=== PATIENT | male | born 1985 | race Two or more races ===

== ENCOUNTER 2022-01-03 00:25 | Emergency (ER) | payer OTHER ==
[2022-01-03] MEDS ORDERED: LIDOCAINE HCL 1%, 10 MG/ML (50 mL VIAL) INF ONE (00:45)
[2022-01-03] MEDS ORDERED: LIDOCAINE HCL 1%, 10 MG/ML (20ML VIAL) ONE (01:30)
[2022-01-03 02:13] VITALS: BP 133/80; PULSE 84; TEMP 97.6; BMI 24.4
== END 2022-01-03 02:44 | disposition home or self-care (01) ==
LOC: JER 00:25
PROC: 0RSJXZZ Reposition Right Shoulder Joint, External Approach (ICD-10-PCS; principal; 2022-01-03)
DX: S43.004A Unspecified dislocation of right shoulder joint, initial encounter (principal); Y99.9 Unspecified external cause status
CPT/HCPCS: 73030-TC-RT-FY; 99283-25